=== PATIENT | female | born 1970 | race Caucasian/White ===

== ENCOUNTER 2018-11-17 18:59 | Emergency (ER) | payer MEDICAID ==
[~2018-11-17] VITALS: Ht 162.6 cm; Wt 61.4 kg
[2018-11-17] MEDS ORDERED: LOSA50TA64 PO (19:14)
[2018-11-17] MEDS ORDERED: ONDANSETRON HCL 4 MG/2 ML VIAL IVP ONE (19:30)
[2018-11-17] MEDS ORDERED: SODIUM CHLORIDE 0.9% 2,000 ML IV ONE (19:30)
[2018-11-17 19:53] LABS: BASOPHILS % (AUTO) 0.4 % (0.0-2.0); EOSINOPHILS % (AUTO) 1.5 % (1.0-6.0); HEMATOCRIT 28.4 % (36-46); HEMOGLOBIN 8.7 g/dL (12.0-16.0); LYMPHOCYTES # (AUTO) 0.8 K/uL (1.0-4.8); LYMPHOCYTES % (AUTO) 7.6 % (22.0-44.0); MEAN CORPUSCULAR HEMOGLOBIN 18.1 pg (26.0-34.0); MEAN CORPUSCULAR HGB CONC 30.6 G/dL (31.0-37.0); MEAN CORPUSCULAR VOLUME 59 fL (80-100); MONOCYTES # (AUTO) 0.4 K/uL (0.1-1.0); MONOCYTES % (AUTO) 4.3 % (2.0-9.0); NEUTROPHILS # (AUTO) 8.8 K/uL (1.8-7.7); PLATELET COUNT (AUTO) 326 K/uL (150-450); RED BLOOD CELL COUNT(AUTO) 4.79 MIL/uL (4.00-5.20); RED CELL DISTRIBUTION WIDTH 20.1 % (11.5-14.5)
[2018-11-17 19:55] LABS: NEUTROPHILS % (AUTO) 86.2 % (40.0-70.0)
[2018-11-17 20:05] LABS: ANION GAP 8 mmol/L (8-16); CALCIUM, TOTAL 8.5 mg/dL (8.8-10.5); CARBON DIOXIDE 30 mmol/L (22-29); CHLORIDE 104 mmol/L (98-107); CREATININE 0.53 mg/dL (0.60-1.30); GLOMERULAR FILTR. RATE CALC > 60 mL/min (>60); GLUCOSE,RANDOM 130 mg/dL (70-110); POTASSIUM 3.4 mmol/L (3.5-5.1); SODIUM SERUM 142 mmol/L (136-145); UREA NITROGEN, BLOOD 26 mg/dL (7-18)
[2018-11-17 20:20] LABS: ALANINE AMINOTRANSFERASE 22 U/L (12-78); ALKALINE PHOSPHATASE 82 U/L (46-116); ASPARTATE AMINOTRANSFERASE 19 U/L (15-37); BILIRUBIN,TOTAL 0.5 mg/dL (0.1-1.0); HCG,QUANTITATIVE 1 mIU/mL (0-6); TOTAL PROTEIN, SERUM 7.9 g/dL (6.4-8.2)
[2018-11-17 22:28] VITALS: BP 121/73
== END 2018-11-17 22:53 | disposition home or self-care (01) ==
LOC: EMS 19:01
DX: D25.9 Leiomyoma of uterus, unspecified (principal); D64.9 Anemia, unspecified; R55 Syncope and collapse; F41.9 Anxiety disorder, unspecified; R10.2 Pelvic and perineal pain; I10 Essential (primary) hypertension; Z90.49 Acquired absence of other specified parts of digestive tract
CPT/HCPCS: 36415; 71045; 74176; 80053; 84484; 84702; 85025; 93005; 96361; 96374; 99285; J2405; J7030